=== PATIENT | male | born 1970 | race Caucasian/White ===

== ENCOUNTER → 2023-06-25 | Outpatient (CLI) | payer MEDICARE, OTHER ==
[2023-06-26 10:06] LABS: Protein, Urine Quantitative 31.7 mg/dL (0.0-11.9)
== END | disposition home or self-care (01) ==
LOC: LAB SHORT 05:00 → LAB 05:00
PROVIDERS: Internal Medicine Nephrology
DX: N18.2 Chronic kidney disease, stage 2 (mild) (principal); D63.1 Anemia in chronic kidney disease; N25.81 Secondary hyperparathyroidism of renal origin; E55.9 Vitamin D deficiency, unspecified; E29.1 Testicular hypofunction; R76.9 Abnormal immunological finding in serum, unspecified; R94.5 Abnormal results of liver function studies; R94.6 Abnormal results of thyroid function studies
CPT/HCPCS: 82043; 82570; 84156